=== PATIENT | female | born 1995 | race African-American/Black ===

== ENCOUNTER 2023-11-23 11:04 | Emergency (ER) | payer MEDICAID, SELFPAY ==
[2023-11-23 11:46] LABS: #Basophils 0.02 10x3/uL (0.0-0.2); #Eosinphils 0.02 10x3/uL (0.0-0.5); #Monocytes 0.45 10x3/uL (0.0-1.1); #Neutrophils 3.84 10x3/uL (1.5-8.4); %Basophils 0.3 % (0.0-2.0); %Eosinophils 0.3 % (0.0-6.0); %Lymphocytes 26.1 % (18.0-47.0); %Monocytes 7.6 % (0.0-10.0); %Neutrophils 65.4 % (40.0-75.0); Hematocrit 32.1 % (34.9-44.5); Hemoglobin 10.5 g/dL (12.0-15.5); Mean Corpuscular HGB CONC 32.7 g/dL (32.0-36.0); Mean Corpuscular Hemoglobin 29.4 pg (27.0-33.0); Mean Corpuscular Volume 89.9 fL (81.6-98.3); Mean Platelet Volume 8.6 fL (7.4-10.4); Platelet Count 360 10x3/uL (150-450); RBC Distribution Width 12.4 % (11.5-14.5); Red Blood Cell (RBC) Count 3.57 10x6/uL (3.90-5.03); White Blood Cell (WBC) Count 5.9 10x3/uL (3.5-10.5)
[2023-11-23 12:11] LABS: Bilirubin Neg (Negative); Blood, Urine 150 (Negative); Clarity Slightly Cloudy (Clear); Glucose, Urine (Dipstick) Normal (Negative); Ketone, Urine 50 mg/dL (Negative); Leukocyte 500 (Negative); Nitrite Negative (Negative); Protein, Urine (Dipstick) 15 mg/dl (Neg-Trace); Specific Gravity, Urine 1.005 (1.005-1.030); Urobilinogen Normal mg/dL (Less than 2)
[2023-11-23 12:12] LABS: Pregnancy Test - Urine (BHCG) POSITIVE (Negative); Pregu Control Background? CLEAR/WHITE (CLR/WHITE); Pregu Control Bar Appear? YES (CONTROL BAR); Specific Gravity 1.005 (1.002-1.036)
[2023-11-23 12:14] LABS: ALT (SGPT) 19 U/L (8-55); AST (SGOT) 17 U/L (5-34); Albumin 3.2 g/dL (3.5-5.0); Alcohol Less than 10.0 mg/dL (Less than 10); Alkaline Phosphatase 83 U/L (40-110); Anion Gap 14 mmol/L (10-20); BUN (Urea Nitrogen) 4 mg/dL (7.0-18.7); Bilirubin, Total 0.6 mg/dL (0.2-1.2); CK (CPK) 56 U/L (29-168); Calc. Creatinine Clearance 0 mL/min (70-130); Calcium 8.8 mg/dL (7.8-10.44); Carbon Dioxide 20 mmol/L (22-29); Chloride 107 mmol/L (98-107); Estimated GFR 118; Globulin 4.4 g/dL (2.4-3.5); Glucose 96 mg/dL (70-105); Potassium 3.5 mmol/L (3.5-5.1); Protein, Total 7.6 g/dL (6.0-8.3); Sodium 137 mmol/L (136-145)
[2023-11-23 12:17] LABS: Amphetamine Not Detected (NotDetected); Barbiturates Screen Not Detected (NotDetected); Benzodiazepine Screen Not Detected (NotDetected); Cocaine Metabolite Screen Not Detected (NotDetected); Methadone Not Detected (NotDetected); Methamphetamine Not Detected (NotDetected); Opiate Screen Not Detected (NotDetected); Oxycodone Screen Not Detected (NotDetected); Phencyclidine (PCP) Not Detected (NotDetected); THC/Cannabinoid Screen Not Detected (NotDetected); Tricyclic Screen Not Detected (NotDetected)
[2023-11-23 13:51] LABS: CAUTI Indications for Culture Pregnancy; RBC/HPF 0-3 HPF (0-3)
[2023-11-23 13:52] LABS: Bacteria/HPF 3+ HPF (None Seen); Urine Culture Reflex Yes Yes
== END 2023-11-23 16:04 | disposition home or self-care (01) ==
LOC: CSHERS 11:04
DX: O99.342 Other mental disorders complicating pregnancy, second trimester (principal); O99.332 Smoking (tobacco) complicating pregnancy, second trimester; F32.A Depression, unspecified; F17.210 Nicotine dependence, cigarettes, uncomplicated; O24.912 Unspecified diabetes mellitus in pregnancy, second trimester; E11.9 Type 2 diabetes mellitus without complications; Z3A.23 23 weeks gestation of pregnancy
CPT/HCPCS: 36415; 80053; 80306; 80307; 81001; 81025; 82550; 85025; 87077; 87086; 87186; 93005

== ENCOUNTER 2024-01-22 10:34 | Day surgery (SDC) | payer MEDICAID ==
[2024-01-22 11:44] VITALS: BMI 33.1
== END 2024-01-22 13:30 | disposition home or self-care (01) ==
LOC: CSHLD/OP 10:34
PROVIDERS: ATTEND Family Medicine
DX: O99.891 Other specified diseases and conditions complicating pregnancy (principal); R10.2 Pelvic and perineal pain; Z3A.32 32 weeks gestation of pregnancy
CPT/HCPCS: 99282

== ENCOUNTER 2024-02-06 12:19 | Day surgery (SDC) | payer MEDICAID | END 2024-02-06 14:33 | disposition home or self-care (01) | LOC: CSHLD/OP 12:19 | PROVIDERS: ATTEND Family Medicine | DX: Z36.89 Encounter for other specified antenatal screening (principal); O24.410 Gestational diabetes mellitus in pregnancy, diet controlled; Z3A.34 34 weeks gestation of pregnancy; Z79.82 Long term (current) use of aspirin; Z79.899 Other long term (current) drug therapy | CPT/HCPCS: 59025; 76819; 99282 ==

== ENCOUNTER 2024-02-26 02:13 | Day surgery (SDC) | payer MEDICAID ==
[2024-02-26 02:40] VITALS: BMI 32.5
[2024-02-26] MEDS ORDERED: hydrALAZINE 20 MG/ML VIAL SLOW IVP PRN (02:44)
[2024-02-26] MEDS ORDERED: Lactated Ringer's 1,000 ML IV SCH (04:15)
[2024-02-26] MEDS: metroNIDAZOLE 500 MG TAB PO SCH (04:50)
[2024-02-26] MEDS: Fluconazole 100 MG TAB PO SCH (04:51)
[2024-02-26] MEDS: Cyclobenzaprine 10 MG TAB PO SCH (04:52)
== END 2024-02-26 07:00 | disposition home or self-care (01) ==
LOC: CSHLD/OP 02:13
PROVIDERS: ATTEND Family Medicine
DX: O47.1 False labor at or after 37 completed weeks of gestation (principal); O24.419 Gestational diabetes mellitus in pregnancy, unspecified control; O23.593 Infection of other part of genital tract in pregnancy, third trimester; B96.89 Other specified bacterial agents as the cause of diseases classified elsewhere; B37.31 Acute candidiasis of vulva and vagina; Z79.899 Other long term (current) drug therapy; Z88.6 Allergy status to analgesic agent; Z88.0 Allergy status to penicillin; Z3A.37 37 weeks gestation of pregnancy
CPT/HCPCS: 87480; 87510; 87660; 96360; 99284

== ENCOUNTER 2024-03-08 09:24 | Inpatient (IN) | payer MEDICAID ==
[2024-03-08] MEDS: Lactated Ringer's 1,000 ML IV SCH (10:00)
[2024-03-08 10:44] VITALS: BMI 32.9
[2024-03-08 11:10] LABS: Glucose 89 mg/dL (70-105)
[2024-03-08 11:16] LABS: Hemoglobin 9.6 g/dL (12.0-15.5); Mean Corpuscular HGB CONC 33.1 g/dL (32.0-36.0); Mean Corpuscular Hemoglobin 28.2 pg (27.0-33.0); Mean Platelet Volume 8.8 fL (7.4-10.4); Platelet Count 397 10x3/uL (150-450); RBC Distribution Width 13.6 % (11.5-14.5); Red Blood Cell (RBC) Count 3.41 10x6/uL (3.90-5.03)
[2024-03-08 11:33] LABS: Syphilis Antibody Nonreactive (Nonreactive); Syphilis Antibody Index 0.09 S/CO (<1.00 Non-Reactive)
[2024-03-08 11:34] LABS: HBsAg Index 0.25 S/CO (0-0.99); Hep B Surf Ag - L&D Non-Reactive S/CO (NonReactive)
[2024-03-08] MEDS ORDERED: Misoprostol 200 MCG TAB PR PRN (12:24)
[2024-03-08] MEDS ORDERED: fentaNYL 50 mcg/mL 1 mL Vial SLOW IVP PRN (12:24)
[2024-03-08] MEDS ORDERED: Ondansetron PF 4 MG/2 ML Vial IVP PRN (12:24)
[2024-03-08] MEDS ORDERED: Acetaminophen 500 MG TAB PO PRN (12:24)
[2024-03-08] MEDS ORDERED: Lidocaine 1% (PF) 30 ML VIAL SC PRN (12:24)
[2024-03-08] MEDS ORDERED: Diphenoxylate HCl/Atropine Tablet PO PRN (12:24)
[2024-03-08] MEDS ORDERED: Carboprost 250 MCG/ML AMP IM PRN (12:24)
[2024-03-08] MEDS ORDERED: Promethazine HCl 25 MG/ML VIAL IM PRN ×2 (12:24→13:29)
[2024-03-08] MEDS ORDERED: hydrALAZINE 20 MG/ML VIAL SLOW IVP PRN (12:24)
[2024-03-08] MEDS ORDERED: HYDROcodone/Acetaminophen 5/325 mg Tablet PO PRN (12:24)
[2024-03-08] MEDS ORDERED: Oxytocin 30 units/NS 500 ML 500 ML IV SCH ×2 (12:30)
[2024-03-08] MEDS: fentaNYL/Ropivacaine Epidural 100 ML ONE (12:54)
[2024-03-08] MEDS ORDERED: diphenhydrAMINE 50 MG/ML VIAL IVP PRN (13:29)
[2024-03-08] MEDS ORDERED: Acetaminophen 325 MG TAB PO PRN (13:29)
[2024-03-08] MEDS ORDERED: Naloxone HCl 0.4 mg/ml Vial IVP PRN ×2 (13:29)
[2024-03-08] MEDS ORDERED: Lactated Ringer's 500 ML IV PRN (13:29)
[2024-03-08] MEDS ORDERED: Moisturizing Cream (Eucerin) 113 GM JAR TOP PRN (13:29)
[2024-03-08] MEDS ORDERED: ePHEDrine Sulfate 50 MG/10 ML VIAL SLOW IVP PRN (13:29)
[2024-03-08] MEDS ORDERED: Communication Order-Pharmacy FS SCH (13:30)
[2024-03-08] MEDS: Oxytocin 30 units/NS 500 ML 500 ML IV SCH (13:38)
[2024-03-08] MEDS: fentaNYL 2 mcg/Ropivacaine 0.2% Epidural 100 ML CADD EPIDURAL SCH (22:18)
[2024-03-09 00:22] LABS: HIV (1/2) Antibody/Antigen Non-Reactive (NonReactive); HIV 1/2 INDEX 0.08 S/CO (<1.00)
[2024-03-09] MEDS: fentaNYL 50 mcg/mL 1 mL Vial ONE ×2 (01:57→02:04)
[2024-03-09] MEDS: Tranexamic Acid 1,000 MG/10 ML VIAL IVP PRN (02:09)
[2024-03-09] MEDS: Methylergonovine 0.2 MG/ML VIAL IM PRN (02:10)
[2024-03-09 02:31] LABS: Platelet Count 325 10x3/uL (150-450)
[2024-03-09] MEDS: Ondansetron PF 4 MG/2 ML Vial IVP PRN (02:36)
[2024-03-09 02:54] LABS: D-Dimer Test 31.07 mcg/mL (0.19-0.50); Prothrombin Time 10.7 sec (9.5-12.1)
[2024-03-09 03:07] LABS: PTT 29.9 sec (22.0-33.0)
[2024-03-09] MEDS: Ibuprofen 800 MG TAB PO SCH ×2 (06:14→16:29)
[2024-03-09] MEDS ORDERED: Promethazine HCl 25 MG/ML VIAL IM PRN (06:19)
[2024-03-09] MEDS ORDERED: Boostrix 0.5 ML (Tdap) VIAL (>/=7 yrs of age) IM ONE (06:19)
[2024-03-09] MEDS ORDERED: hydrALAZINE 20 MG/ML VIAL SLOW IVP PRN (06:19)
[2024-03-09] MEDS ORDERED: diphenhydrAMINE 25 MG CAP PO PRN (06:19)
[2024-03-09] MEDS ORDERED: Ondansetron PF 4 MG/2 ML Vial IVP PRN (06:19)
[2024-03-09] MEDS ORDERED: Milk Of Magnesia 30 ML UDCUP PO PRN (06:19)
[2024-03-09] MEDS ORDERED: Lanolin Ointment 7 GM TUBE TOP PRN (06:19)
[2024-03-09] MEDS ORDERED: Bisacodyl 10 MG SUPP PR PRN (06:19)
[2024-03-09] MEDS ORDERED: Benzocaine-Menthol 82.5 ML CAN TOP PRN (06:19)
[2024-03-09] MEDS: Prenatal Vitamin 1 TAB PO SCH (08:19)
[2024-03-09] MEDS: Docusate 100 MG CAP PO SCH (08:19)
[2024-03-09] MEDS: Ferrous Sulfate 325 MG TAB PO SCH (08:19)
[2024-03-09] MEDS: HYDROcodone/Acetaminophen 5/325 mg Tablet PO SCH (08:22)
[2024-03-09 09:39] LABS: Hematocrit 25.3 % (34.9-44.5); Hemoglobin 8.4 g/dL (12.0-15.5); Platelet Count 304 10x3/uL (150-450)
[2024-03-09] MEDS ORDERED: Oxytocin 30 units/NS 500 ML 1,000 ML IV SCH (10:15)
[2024-03-09] MEDS ORDERED: Methylergonovine 0.2 MG/ML VIAL IM PRN (10:15)
[2024-03-09] MEDS ORDERED: HYDROcodone/Acetaminophen 5/325 mg Tablet PO PRN (10:15)
[2024-03-09] MEDS ORDERED: Misoprostol 200 MCG TAB VAG SCH (10:15)
[2024-03-09] MEDS: Midazolam HCl 2 mg/2 ml Vial ONE (14:03)
[2024-03-09] MEDS: fentaNYL 50 mcg/mL 1 mL Vial SLOW IVP SCH (14:04)
[2024-03-09] MEDS: Fentanyl 100 MCG/2 ML VIAL SLOW IVP SCH (14:05)
[2024-03-09] MEDS: HYDROcodone/Acetaminophen 5/325 mg Tablet PO PRN (16:31)
[2024-03-12 07:42] VITALS: BP 115/66; TEMP 97.8
== END 2024-03-12 09:55 | disposition home or self-care (01) | DRG 806 ==
LOC: CSHLD/OP 09:24 → CSHLD 10:02 → CSHPP 03-09 10:30
PROVIDERS: ADMIT Family Medicine; ATTEND Family Medicine
PROC: 10E0XZZ Delivery of Products of Conception, External Approach (ICD-10-PCS; principal; 2024-03-08)
PROC: 30233N1 Transfusion of Nonautologous Red Blood Cells into Peripheral Vein, Percutaneous Approach (ICD-10-PCS; 2024-03-09)
DX: O42.02 Full-term premature rupture of membranes, onset of labor within 24 hours of rupture (principal); O72.2 Delayed and secondary postpartum hemorrhage; Z37.0 Single live birth; O24.420 Gestational diabetes mellitus in childbirth, diet controlled; Z3A.38 38 weeks gestation of pregnancy; Z88.0 Allergy status to penicillin; Z91.040 Latex allergy status
CPT/HCPCS: 36415; 36416; 36430; 51702; 82947; 85014; 85018; 85027; 85049; 85300; 85362; 85384; 85610; 85730; 86780; 86850; 86900; 86901; 87340; 87389; 99285; J2210; J2250; J2405; J2590; J3010; J7120; P9016